=== PATIENT | female | born 1990 | race Caucasian/White ===

== ENCOUNTER 2025-03-21 13:49 | Outpatient (REF) | payer MEDICARE, MEDICAID, SELFPAY ==
[2025-03-21 16:21] LABS: Thyroid Stimulating Hormone 0.29 uIU/mL (0.32-4.0)
== END 2025-03-21 13:50 | disposition home or self-care (01) ==
LOC: HO.LAB 13:49
PROVIDERS: PCP Internal Medicine; Referring Provider Internal Medicine; Visit Provider Psychiatry & Neurology Neurology
DX: G93.49 Other encephalopathy (principal); F89 Unspecified disorder of psychological development; G80.9 Cerebral palsy, unspecified; G47.9 Sleep disorder, unspecified; Z79.899 Other long term (current) drug therapy
CPT/HCPCS: 36415; 84443; 99202

== ENCOUNTER 2025-03-21 13:49 | Outpatient (AMB) | payer MEDICARE, MEDICAID, SELFPAY ==
--- NOTE | 2025-03-21 14:03 | A.OFFVIS_ITS ---
Intake Visit Reasons: infantile cerebral palsy HPI Comments Details: The patient is a 34-year-old female presenting with the need for a comprehensive follow-up and evaluation, as she has not had consistent medical care for over 14 years. She has an established diagnosis of cerebral palsy and developmental delay of unknown etiology. Currently under the care of a non-relative caregiver, the patient exhibits type 2 diabetes mellitus, scoliosis, and congenital facial and skull allergies. She is nonverbal with limited communication abilities, and her sleep disturbances are managed with melatonin and a recently prescribed low- dose Trazodone. The patient does not exhibit seizure activity according to her caregiver since October, and she remains partially incontinent requiring diaper use for bowel and bladder control. Ongoing medical care includes future plans for an REHABILITATION CASE COORDINATOR visit, as a neurological evaluation has been primarily limited to PCP oversight. 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 - Musculoskeletal: Reports scoliosis. - Endocrine: Reports type 2 diabetes mellitus. - Respiratory: Reports congenital allergies affecting the skull and face. - Dermatological: No specific skin concerns reported. Physical Exam Neuro Other: Mental Status: She is alert and awake able to say Hi or yes or no but not communicating. She was busy working with the computer. She is smiling and giggling. Cranial Nerves: CN II: Visual braxton full to confrontation, visual acuity intact. CN III, IV, : Pupils equal, round, reactive to light and accommodation. Extraocular movements are normal. CN V: Facial sensation is normal. CN VII: Facial movements symmetrical. CN VIII: Hearing intact to bedside conversation is normal. CN IX, X: Palate elevates symmetrically. CN XI: Shoulder shrug and head turn symmetrical. CN XII: Tongue midline without atrophy or fasciculations. Motor: DTRs are brisk. Extrapyramidal: Full facial expressions and blinking. No rigidity. Movements are appropriate with no tremor or abnormality. Speech: Minimal./ Assessment & Plan Assessment & Plan (1) Chronic static encephalopathy: Code(s): G93.49 - Other encephalopathy Category: Medical (2) Developmental disability: Code(s): F89 - Unspecified disorder of psychological development Category: Medical Plan Impression: 34 yo woman with moderate to severe cognitive disability likely due to genetic or congenital etiology. No evidence or signs of headaches or seizures. She is known to be difficult to manage as far as behavior is concerned. She also has difficulty sleeping. Rec: a: CT brain w/o cont b: B12/folate, TSH Orders: Orders CT head/brain wo IV con Today F89 - Unspecified disorder of psychological development, G93.49 - Other encephalopathy Vitamin B12 and Folate Today F89 - Unspecified disorder of psychological development, G93.49 - Other encephalopathy Thyroid Stimulating Hormone Today F89 - Unspecified disorder of psychological development, G93.49 - Other encephalopathy Coding Level of Care Code Tele New Pt Level 4 (24404) Diagnoses Chronic static encephalopathy G93.49 Developmental disability F89
--- OUTSIDE RECORDS SUMMARY | 2025-03-21 14:45 | XMS_ITS | Clinical Summary ---
Author Organization [address] Address [address] [place] [phone] Phone Care Team Providers Care Commercial Parts Professional Name Role Phone Raul Zheng MD Primary Care Provider Allergies Active Allergy Reactions Criticality Noted Date Comments Other 01/06/2019 Seasonal--? Tree pollen Medications triamcinolone (KENALOG) 0.1 % lotion Apply topically 2 (two) times a day. 11/25/19 25 Active cetirizine (ZyrTEC) 10 mg tablet Take 1 tablet (10 mg total) by mouth 1 (one) time each day. 11/25/19 25 Active ammonium lactate (AMLACTIN) 12 % cream Apply topically if needed (thick skin). 770 g 01/26/20 25 025 Active traZODone (DESYREL) 50 mg tablet TAKE 0.5 TABLETS BY MOUTH AT BEDTIME NEEDED FOR SLEEP. 15 tablet 1 03/20/20 25 Active traZODone (DESYREL) 50 mg tablet Take 0.5 tablets (25 mg total) by mouth at bedtime as needed for sleep. 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 01/2025 Delay in development 09/08/2024 Infantile cerebral palsy (CMS/HCC V24, CMS/HCC V 28) 09/08/2024 Overview (09/08/2024): IMO update Otalgia 09/08/2024 Overview (09/08/2024): Seen by ENT for chronic eustachian tube dysfunction + otorrhea 2007 - 2009, seen 01/14/10 with cx taken and ciprodex started IMO update Renal sclerosis 09/08/2024 Idiopathic scoliosis and kyphoscoliosis 09/08/19 25 Class 2 obesity due to exces s calories without serious comorbidity with body mass index (BMI) of 38.0 to 38.9 in adult 09/08/2024 Cognitive impairment 11/06/2013 Encounters Date Type Department Care Team Description 02/21/2025 Telephone Internal Medicine - [address] [phone] Raul Zheng MD Pre-operative Clearance; info needed 02/16/2025 Telephone Internal Medicine - [address] [phone] Raul Zheng MD Insomnia 01/25/2025 3:30 PM EDT Consult Orthopedic Surgery [address] [phone] Oliver Spicer, DPM Contracture of muscle of both feet (Primary Dx); Bilateral bunions; Dermatophytosis of nail; Pain in toe of right foot; Pain in toe of left foot; Corns and callosities; Metatarsalgia of both feet; Difficulty walking [R26.2] 01/19/2025 10:00 AM EDT Consult Internal Medicine - [address] [phone] Raul Zheng MD Infantile cerebral palsy ([facility] V24, [facility] V28) (Primary Dx); Pre-operative clearance 12/26/2024 Telephone Internal Medicine - [address] [phone] Raul Zheng MD Forms/questionnaires from Last 3 Months Immunizations Name Administration Dates Next Due DTP 05/22/1993, 3,07/11/1992,05/16,02/12/1992 [id number] (Pentacel) 2mo to less than 5yo 02/20/1993,05/16/1992,02/27/1992,12/23 H1N1 Inj Preservative Free 06/12/2009 Hepatitis B Pediatric (Enger ix B; Recombivax HB) to less than 20 yo 10/16/1994,02/12/1992,1991 Influenza trivalent, with pr eservative (Fluzone; Afluria) 6mo and older 08/18/2010,04/22/2009,05/04/2005,05/12,05/15/2002,11/18/2000,07/16/2000 Influenza, live, intranasal, trivalent (FluMist) 2yo to less than 50yo 05/30/2014,06/12/2013,05/27/2012 MMR, measles mumps and rubel la Live (Priorix; M-M-R II) 12mo and older 11/13/1996,11/08/1992 Meningococcal MCV4P 06/12/2013,01/13/2008 OPV 11/13/1996, 3,07/11/1992,05/16,1991 Pneumococcal conjugate 20 va lent (Prevnar 20, PCV 20) 2mo and older 10/28/2023 Td Tetanus diptheria (Tdvax) 7yo and older 05/12/2004,11/13/1996 Tdap Tetanus diptheria acell ular pertussis (Boostrix; Adacel) 7yo and older 10/28/2023,11/17/2010 Varicella live (Varivax) 12m o and older 11/17/2010,11/18/2000 Surgical History Surgery Date Site/Laterality Comments OTHER SURGICAL HISTORY PROCEDURE: [place] RMVL LUNG OTHER THAN PNEUMONECTOMY 1 LOBE LOBECT; COMMENT: RIGHT LUNG CARDIAC SURGERY PROCEDURE: HISTORICAL HEART SURGERY(ASD,VSD,VALVES); COMMENT: patent ductus closure per father Medical History Medical History Date Comments Infantile cerebral palsy, unspecified DX:Infantile cerebral palsy, unspecified Renal sclerosis, unspecified DX: Renal sclerosis, unspecified Otalgia, unspecified DX:Otalgia, unspecified Unspecified delay in development(315.9) DX:Unspecified delay in development(315.9) Scoliosis (and kyphoscoliosi s), idiopathic DX:Scoliosis (and kyphoscoli osis), idiopathic Congenital anomalies of skul l and face bones DX:Congenital anomalies of s kull and face bones Family History Medical History Relation Name Comments Asthma Brother 1 Other cancer Mother Other: COPD Paternal Grandfather Relation Name Status Comments Brother 1 Brother 2 Alive Father Alive JESSICA Mother Paternal Grandfather Social History Tobacco Use Types Packs/Day Years Used Date Smoking Tobacco: Never Smokeless Tobacco: Never Alcohol Use Standard Drinks/Week Comments No 0 (1 standard drink = 0.6 oz pur e alcohol) Comments No Sex and Gender Information Value Date Recorded Sex Assigned at Not on file Legal Sex Female 7:32 AM EST Gender Identity Not on file Sexual Orientation Not on file Obstetrics History Last Filed Vital Signs Vital Sign Reading Time Taken Comments Blood Pressure 116/78 01/19/2025 9:31 AM EDT Pulse 80 01/19/2025 9:31 AM EDT Temperature 36.3 C (97.4 F) 01/19/2025 9:31 AM EDT Respiratory Rate - - Oxygen Saturation 96% 01/19/2025 9:31 AM EDT Inhaled Oxygen Concentration - - Weight 83.6 kg (184 lb 4.8 oz) 01/19/2025 9:31 A M EDT Height 160 cm (5' 3 ) 01/19/2025 9:31 AM EDT Body Mass Index 32.65 01/19/2025 9:31 AM EDT Plan of Treatment Health Maintenance Due Date Last Done Comments Cervical Cancer Screening: Pap Smear 10/18/2012 HIV Screening 07/05/2022 Hepatitis C Screening 07/05/2022 Medicare Annual Wellness Visit 07/05/2022 Social Influencers of Health Screening 07/05/2022 COVID-19 Vaccine ( season) 2024 08/14/2021, 12/17/2020, 11/26/2020 Depression Screening 08/02/2024 Influenza Vaccine (#1) 2025 4, 06/12/2013, 05/27/2012, Additional history exists Cholesterol Screening (Lipid Panel) 10/12/2029 10/12/2024, 01/06/2019 DTaP,Tdap,and Td Vaccines (9 - Td or Tdap) 10/27/2033 10/28/2023, 11/17/2010, 05/12/2004, Additional history exists HIB Vaccines Completed 02/20/1993, 05/02, 02/27/1992, Additional history exists Hepatitis B Vaccines Completed 10/16/1994, 02/12/1992, 1991 IPV Vaccines Completed 11/13/1996, 05/03, 02/20/1993, Additional history exists MMR Vaccines Completed 11/13/1996, 11/08/1992 Varicella Vaccines Completed 11/17/2010, 11/18/2000 Meningococcal ACWY Vaccine Completed 06/12/2013, Pneumococcal Vaccine: Pediatrics (0 to 5 Years) and At-Risk Patients (6 to 49 Years) Aged Out 10/28/2023 No longer eligible based on patient's age to complete this topic HPV Vaccines Aged Out No longer eligi ble based on patient's age to complete this topic Hepatitis A Vaccines Aged Out No long er eligible based on patient's age to complete this topic Meningococcal B Vaccine Aged Out No l onger eligible based on patient's age to complete this topic RSV Immunization Patients Under 20 months Aged Out No longer eligible based on patient's age to complete this topic Procedures Procedure Name Priority Date/Time Associated Diagnosis Comments XR FOOT 3+ VIEWS BILAT Routine 01/25/2025 4:02 PM EDT Bilateral bunions LIPID PANEL WITH REFLEX TO DIRECT LDL Routine 10/12/2024 4:17 PM EDT Screening for endocrine, nutritional, metabolic and immunity disorder from Last 3 Months or Most Recently Relevant to Health Maintenance Results * XR Foot 3+ Views bilat (01/25/2025 4:02 PM EDT) Anatomical Region Laterality Modality Lower Extremities, Foot Bilateral Computed Radiography Narrative 01/25/2025 4:53 PM EDT Right foot 3 views No fracture. No radiopaque foreign joint spaces normal Left foot 3 views No fracture. No radiopaque foreign joint spaces normal us Oliver Spicer DPSatish IMG XR PROCEDURES Final R esult * Lipid panel with reflex to direct LDL (10/12/2024 4:17 PM EDT) Cholesterol 166 0 - 200 mg/dL LAB CHEMISTRY METHOD 10/12/2024 7:17 PM EDT [facility] Triglycerides 135 0 - 150 mg/dL LAB CHEMISTRY METHOD 10/12/2024 7:17 PM EDT [facility] HDL 45 >=40 mg/dL LAB CHEMISTRY METHOD 10/12/2024 7:17 PM EDT [facility] LDL Calculated 94 0 - 100 mg/dL LAB CHEMISTRY METHOD 10/12/2024 7:17 PM EDT [facility] VLDL Cholesterol Vyes 27 mg/dL LAB CHEMISTRY METHOD 10/12/2024 7:17 PM EDT [facility] Non HDL Chol. (LDL+VLDL) 121 <145 mg/dL LAB CHEMISTRY METHOD 10/12/2024 7:17 PM EDT [facility] Chol/HDL Ratio 3.7 0.0 - 4.4 LAB CHEMISTRY METHOD 10/12/2024 7:17 PM EDT [facility] Blood Venous blood specimen / Unknown Venipuncture / Unknown 10/12/2024 4:17 PM EDT 10/12/2024 4:17 PM EDT Jez LINDSAY LAB BLOOD ORDERABLES Fi nal Result [facility] [address] [place] [address], from Last 3 Months or Most Recently Relevant to Health Maintenance Insurance MEDICAID - [place] MEDICARE Care Teams Commercial Parts Professional Relationship Specialty Start Date End Date Raul Zheng MD [address] [place] [id number] PCP - General Internal Medicine 08/09/20
--- OUTSIDE RECORDS SUMMARY | 2025-03-21 14:45 | XMS_ITS ---
Author Name Daykin MOUSTAPHA, Mr. Alejandro Harris Address [address] [place] [address] Phone [phone] [facility] Care Team Providers Care Barn Boss Name Role Phone Toan Santos Unavailable [phone] Reason for Referral Not Available Allergies, adverse reactions, alerts No known allergies Problem List Problem Status Onset Date Resolved Date Synopsis Morbid obesity Active 2022-12-30 N/A BMI- 35.51 Dad states that she doesn't get much exercise, has had spinal fusion, cannot move very well. Encouraged to try and make healthier dietary choices. Cerebral palsy Active 2022-12-30 N/A Lives with father, goes to day program M-F. Able to ambulate,. Scoliosis Active 2022-12-30 N/A Has had multip le spinal surgeries, dad says it makes her less independent, because she has a lot of metal rods in her back. Developmental delay Active 2022-12-30 N/A Fathomer gar reports that member is at 5-7 year old age level, mentally. Encounters Encounters Type Facility Date of Service Diagnosis/Co mplaint No Data Available [facility] ([place] 12/30/2022 Cerebral palsy, unspecifiedScoliosis, unspecifiedUnsp lack of expected normal physiol dev in childhoodMorbid (severe) obesity due to excess caloriesBody mass index (BMI) 35.0-35.9, adult No Data Available [facility] ([place]) 12/30/2022 No Data Available [facility] [place] 12/30/2022 No Data Available [facility] [place] 12/30/2022 No Data Available [facility] [place] 12/30/2022 No Data Available [facility] [place] 12/30/2022 No Data Available [facility] [place] 12/30/2022 Vital Signs Date of Collection Vitals 2022-12-30 06:06:50 Height - 167.64 cmWe ight - 99.79 kgBody Mass Index (BMI) - 35.51 kg/m2 Social History Social History Social History Observation Description Effec tive Time Current Smoking Status Never smoker 2025-03-03 0 Sex Female History of Procedures Procedures Service Procedure code Service date Servicing provider Phone# No Data Available [id number] 2022-12-30 No Data Available No Data Available Medication Review by prescribing provider or pharmacist documented (1160F) 1160F 2022-12-30 No Data Available No Data Hali ilable Functional Status Assessed (1170F) 1170F 2022-12-30 No Data Available No Data Avail able Pain Assessment - NO pain present (1126F) 1126F 2022-12-30 No Data Available No Data A vailable Advance Care Directive Advance care planning discussion documented in the medical record (1158F) 1158F 2022-12-30 No Data Available No Data Availa ble BMI obtained (3008F) 3008F 2022-12-30 No Data Availab le No Data Available Advance care planning discussed and documented advance care plan or surrogate decision-maker was documented in the medical record. (1123F) 1123F 2022-12-30 No Data Available No Data Availa ble Functional Status Functional Category Effective Dates Cognition Status: Oriented to Person, Pl connie and Time 2022-12-30 ADL Eating: Some Help Needed ; Ambulation: Some Help Needed- Wears bilateral AFO's; Dressing: Independent; Bathing: Total Assist; Toileting: Some Help Needed 2022-12-30 IADL Shopping: Some Help Nee ded; Housekeeping: Some Help Needed; Meal Prep: Some Help Needed; Medications Management: Total Assist 2022-12-30 Falls in last 6 Months: No 2022-12-30 Mental Status No Information Assessments Date of Service Assessments 2022-12-30 06:06:50 Cerebral palsyLives with father, goes to day program M-F. Able to ambulate,.ScoliosisHas had multiple spinal surgeries, dad says it makes her less independent, because she has a lot of metal rods in her back.Developmental delayFather reports that member is at 5-7 year old age level, mentally.Morbid obesityBMI- 35.51Dad states that she doesn't get much exercise, has had spinal fusion, cannot move very well. Encouraged to try and make healthier dietary choices. Plan of Care Date of Service Plans 2022-12-30 06:06:50 BMI obtained (3008F) Televideo new patient, 30-44min 1 stable chronic or 2 minor; add modifier 95Advance care planning discussed and documented advance care plan or surrogate decision-maker was documented in the medical record. (1123F)Continue to see PCP. Follow-up with Chriss as needed for any acute or disease education needs that may arise 22/02. Health Concerns Date Concern 2022-12-30 Visit completed via audio by telephone, will follow up for video. Patient/Guardian agreed to visit via telehealth. Introductory visit with Chriss to establish care. Today, patient has chief complaint of: establishing care.Spoke with keke, who is HCP/POA, total time 30 minutes.Reviewed Allergies, Medications, Active Medical conditions, past medical/surgical history, Social history. 2022-12-30 Most recent hospital stay(s) or ER visit(s) and precipitating factors: None Recently 2022-12-30 Advance care planwalter white discussion. Conversation today with: Member keke
== END 2025-03-21 14:18 | disposition home or self-care (01) ==
LOC: HO.HSM 13:50
PROVIDERS: PCP Internal Medicine; Referring Provider Internal Medicine; Visit Provider Psychiatry & Neurology Neurology
DX: G93.49 Other encephalopathy (principal); F89 Unspecified disorder of psychological development
CPT/HCPCS: 99204

== ENCOUNTER 2025-04-10 16:22 | Outpatient (REF) | payer MEDICARE, MEDICAID, SELFPAY ==
--- NOTE | ~2025-04-10 | CT_ITS ---
CLINICAL HISTORY: G93.49 - Other encephalopathy Exam: CT Head without IV contrast Comparison: None Findings: Moderate motion blurring despite repeated scan degraded diagnostic quality. No acute intracranial hemorrhage, mass, midline shift or hydrocephalus. Adamson-white matter differentiation is grossly maintained. Orbital contents are within normal range. Opacification of the left mastoid air cells and middle ear. Included paranasal sinuses are grossly unremarkable. No acute displaced fracture. Unremarkable extracranial soft tissue. Impression: 1. Suboptimal exam due to motion artifacts. No acute intracranial finding. 2. Opacification of the left mastoid air cells and middle ear, recommend clinical correlation for mastoiditis and otitis media. This document has been electronically signed by: Fransisca [place] MD on 04/11/2025 14:27:33
--- OUTSIDE RECORDS SUMMARY | 2025-04-10 18:12 | XMS_ITS | Clinical Summary ---
Author Organization [address] Address [address] [place] [phone] Phone Care Team Providers Care Liaison Planner Name Role Phone Raul Zheng MD Primary Care Provider [phone] Allergies Active Allergy Reactions Criticality Noted Date Comments Other 01/06/2019 Seasonal--? Tree pollen Medications triamcinolone (KENALOG) 0.1 % lotion Apply topically 2 (two) times a day. 11/25/19 25 Active cetirizine (ZyrTEC) 10 mg tablet Take 1 tablet (10 mg total) by mouth 1 (one) time each day. 11/25/19 25 Active traZODone (DESYREL) 50 mg tablet TAKE 0.5 TABLETS BY MOUTH AT BEDTIME NEEDED FOR SLEEP. 15 tablet 1 03/20/20 25 Active ammonium lactate (AMLACTIN) 12 % cream Apply topically if needed (thick skin). 770 g 01/26/20 25 025 traZODone (DESYREL) 50 mg tablet Take 0.5 [...] eustachian tube dysfunction + otorrhea 2007 - recurring 2009, seen 01/14/10 with cx taken and ciprodex started IMO update Renal sclerosis 09/08/2024 Idiopathic scoliosis and kyphoscoliosis 09/08/19 25 Class 2 obesity due to exces s calories without serious comorbidity with body mass index (BMI) of 38.0 to 38.9 in adult 09/08/2024 Cognitive impairment 11/06/2013 Encounters Date Type Department Care Team Description 04/05/2025 [facility] [address] [place] [address] Raul Zheng MD 03/27/2025 Telephone Internal Medicine - [address] [phone] Raul Zheng MD 03/22/2025 [facility] [address] [phone] Raul Zheng MD 02/21/2025 [facility] [address] [place] [address] Raul Zheng MD 02/16/2025 [facility] - [address] [phone] Raul Zheng MD 01/25/2025 3:30 PM EDT Consult Orthopedic Surgery - [address] [phone] Oliver Spicer, DPM Contracture of muscle of both feet (Primary Dx); Bilateral bunions; Dermatophytosis of nail; Pain in toe of right foot; Pain in toe of left foot; Corns and callosities; Metatarsalgia of both feet; Difficulty walking [R26.2] 01/19/2025 10:00 AM EDT Consult Internal Medicine - [address] [phone] Raul Zheng MD Infantile cerebral palsy (CMS/[facility] V24, CMS/[facility] V28) (Primary Dx); Pre-operative clearance from Last 3 Months Immunizations Name Administration Dates Next Due DTP 05/22/1993, 3,07/11/1992,05/16,02/12/1992 [id number] (Pentacel) 2mo to less than 5yo 02/20/1993,05/16/1992,02/27/1992,12/23 [...] Date Site/Laterality Comments OTHER SURGICAL HISTORY PROCEDURE: [place] RMVL LUNG OTHER THAN PNEUMONECTOMY 1 LOBE [...] 07/05/2022 Social Influencers of Health Screening 07/05/2022 Depression Screening 08/02/2024 COVID-19 Vaccine ( season) 2025 08/14/2021, 12/17/2020, 11/26/2020 Influenza Vaccine (#1) 2025 4, 06/12/2013, 05/27/2012, [...] foreign joint spaces normal us Oliver Spicer DPM IMG XR PROCEDURES Final R esult * Lipid panel with reflex to direct LDL (10/12/2024 4:17 PM EDT) Cholesterol 166 0 - 200 mg/dL LAB CHEMISTRY METHOD 10/12/2024 7:17 PM EDT [facility] Triglycerides 135 0 - 150 mg/dL LAB CHEMISTRY METHOD 10/12/2024 7:17 PM EDT [facility] HDL 45 >=40 mg/dL LAB CHEMISTRY METHOD 10/12/2024 7:17 PM EDT [facility] LDL Calculated 94 0 - 100 mg/dL LAB CHEMISTRY METHOD 10/12/2024 7:17 PM EDT [facility] VLDL Cholesterol Yves 27 mg/dL LAB CHEMISTRY METHOD 10/12/2024 7:17 PM EDT [facility] Non HDL Chol. (LDL+VLDL) 121 <145 mg/dL LAB CHEMISTRY METHOD 10/12/2024 7:17 PM EDT [facility] Chol/HDL Ratio 3.7 0.0 - 4.4 LAB CHEMISTRY METHOD 10/12/2024 7:17 PM EDT [facility] Blood Venous blood specimen / Unknown Venipuncture / Unknown 10/12/2024 4:17 PM EDT 10/12/2024 4:17 PM EDT us Jez LINDSAY LAB BLOOD ORDERABLES Fi nal Result [facility] [address] [place] [address], [place] [phone] from Last 3 Months or Most Recently Relevant to Health Maintenance Insurance [place] Care Teams Liaison Planner Relationship Specialty Start Date End Date Raul Zheng MD [address] [place] [id number] PCP - General Internal Medicine 08/09/20
--- OUTSIDE RECORDS SUMMARY | 2025-04-10 18:12 | XMS_ITS ---
Author Name Ivydale MOUSTAPHA, Mr. Alejandro Harris Address [address] [place] [address] Phone [phone] [facility] Care Team Providers Care Orthodontist Assistant Name Role Phone Toan Santos Unavailable [phone] Reason for Referral Not Available Allergies, adverse [...] of Service Diagnosis/Co mplaint No Data Available [facility] ([place] 12/30/2022 Cerebral palsy, unspecifiedScoliosis, unspecifiedUnsp lack of expected normal physiol dev in childhoodMorbid (severe) obesity due to excess caloriesBody mass index (BMI) 35.0-35.9, adult No Data Available [facility] [place] 12/30/2022 No Data Available [facility] [place] 12/30/2022 No Data Available [facility] [place] 12/30/2022 No Data Available [facility] [place] 12/30/2022 No Data Available [facility] [place] 12/30/2022 No Data Available [facility] [place] 12/30/2022 Vital Signs Date of Collection Vitals 2022-12-30 06:06:50 Height - 167.64 cmWe ight - 99.79 kgBody Mass Index (BMI) - 35.51 kg/m2 Social History Social History Social History Observation Description Effec tive Time Current Smoking Status Never smoker 10 Sex Female History of Procedures Procedures Service Procedure code Service date Servicing provider Phone# No Data Available [id number] 2022-12-30 No Data Available No Data Available [...]
--- OUTSIDE RECORDS SUMMARY | 2025-04-10 18:13 | XMS_ITS | Encounter Summary ---
Author Organization [facility] Address [address] [place] [address] Care Team Providers Care Customer Service Assistant Name Role Phone Raul Zheng MD Primary Care Provider [phone] Reason for Visit * Reason Onset Date Comments information needed 04/05/2025 Encounter Details Date Type Department Care Team (Late st Contact Info) Description 04/05/2025 Telephone Internal Medicine [facility] [address] [place] [address] Raul Zheng MD [address] [place] [address] Social History Tobacco Use Types Packs/Day Years Used Date Smoking Tobacco: Never Smokeless Tobacco: Never Alcohol Use Standard Drinks/Week Comments No 0 (1 standard drink = 0.6 oz pur e alcohol) Comments No Sex and Gender Information Value Date Recorded Sex Assigned at Not on file Legal Sex Female 7:32 AM EST Gender Identity Not on file Sexual Orientation Not on file documented as of this encounter Progress Notes * Colette Tello MA - 04/05/2025 2:33 PM EDT Faxed * Telma Tena - 04/05/2025 2:28 PM EDT [facility] , Pari Pope - director [facility] asked for copy of last PE 10/30/24 faxed to [phone] documented in this encounter Plan of Treatment Not on file documented as of this encounter Visit Diagnoses Not on filedocumented in this encounter Care Teams Customer Service Assistant Relationship Specialty Start Date End Date Raul Zheng MD [address] [place] [address] PCP - General Internal Medicine 08/09/20 documented as of this encounter
--- OUTSIDE RECORDS SUMMARY | 2025-04-10 18:13 | XMS_ITS | Patient Health Record ---
Author Organization [facility] Address [address] [place] [id number] Care Team Providers Care Chef French Name Role Phone OMID LPOEZ Unavailable [phone] Allergies No Known Allergies Results Component Value Reference Range Flag Notes NuSwab VG+, Anabel 6sp-1800 68 Reviewed date:04/01/2025 08:26:38 AM Interpretation:BV/VVC Performing Lab:[facility] [place], [address] [place] [address], [place], Phone - [phone], Director - [place] Notes/Report: and Drug Administration. by [employer]. It has not been cleared or approved by the Food was developed and its performance characteristics determined 121350-Tanmoix krusei, LETICIA 454340-U parapsilosis/tropicalis; 098972-Mtpehpp lusitaniae, LETICIA; Test(s) 159983-Xtixyzr albicans, LETICIA; 324611-Ddnlity glabrata, LETICIA; and Drug Administration. by [employer]. It has not been cleared or approved by the Xero was Savorfull and its performance characteristics determined Megasphaera 1 Clinical Information:SRC: SOURCE NOT INDICATED Atopobium vaginae High - 2 A BVAB 2 Moderate - 1 Megasphaera 1 Low - 0 Calculate total score by adding the 3 individual bacterial vaginosis (BV) marker scores together. Total score is interpreted as follows: Total score 0-1: Indicates the absence of BV. Total score 2: Indeterminate for BV. Additional clinical data should be evaluated to establish a diagnosis. Total score 3-6: Indicates the presence of BV. Anabel albicans, LETICIA Positive Negative A Anabel glabrata, LETICIA Negative Negative C parapsilosis/tropicalis Negative Negative This assay does not differentiate C. tropicalis and C. parapsilosis. Anabel lusitaniae, LETICIA Negative Negative Anabel krusei, LETICIA Negative Negative Trich vag by LETICIA Negative Negative Chlamydia trachomatis, LETICIA Negative Negative Neisseria gonorrhoeae, LETICIA Negative Negative Reason For Referral Reason TANK TRUCK DRIVER referral Diagnosis 1 Menorrhagia (N92.0) Referral Organization [facility] Referring Provider First Name OMID Referring Provider Last Name JOHN Referring Provider Speciality Nurse Chema alexis Referred Provider Specialty Duralumin Mechanic General Notes Camila Kaur) is a 34 year old AFAB person with a history of autism spectrum disorder, cerebral palsy, and a specific learning disorder. She was accompanied to today's visit by her personal fitness trainer to address concerns regarding menorrhagia and dysmenorrhea., Given the severity of symptoms, menstrual suppression was initiated with combined hormonal contraceptives as a first-line intervention. However, due to ongoing challenges with symptom management and long-term planning, gynecology evaluation is requested to consider alternative options, including levonorgestrel-releasing intrauterine device (IUD) placement under sedation or surgical management if indicated., The patient has never undergone cervical cancer screening or STI screen. Due to limited verbal communication and cognitive impairment, a standard speculum exam would likely cause significant distress and may not be tolerated without sedation. Sedation is recommended for both pelvic examination and any procedures to ensure patient comfort and support a trauma-informed approach. Sexual history is unknown and cannot be reliably obtained. Please schedule consult accordingly. Thank you, OMID LOPEZ 03/27/2025 05:28:48 PM > Clinical Notes Emily Ruggiero 2024 12:54:04 PM > printed and sent Referral Priority Routine Medications Medication SIG (Take, Route, Frequency, Duration) Notes Start Date End Date Status metroNIDAZOLE 500 MG Tablet 1 tablet Ora lly Twice a day, every 12 hours; Duration: 7 days 03/30/2025 Active Fluconazole 150 MG Tablet 1 tablet Orall y One tablet every 72 hours for a total of 3 doses; Duration: 9 day(s) 03/30/2025 Active CeleBREX Active Desogestrel-Ethinyl Estradiol 0.15-0.02/0.01 MG (20/12) Tablet 1 tablet Orally Once a day; Duration: 84 days Active Social History Sex Assigned At : Social History Observation Description Sex Assigned At Female Social History HIV Risk Assessment Social Info Question Answer Notes Additional Questions Is an HIV Risk Assessment being c onducted? Yes Have you been tested for HIV before? No Did you have a blood transfusion prior to 1985? No Do you have an unlicensed body piercing or tattoo? No Reproductive Life Plan: Social Info Question Answer Notes Reproductive Life Plan: Do you want to h ave children? No, I don't want to have children How sure are you that you will be able to use your control method without any problems? Very sure People's plans change. Is it possible you or your partner could ever decide to become ? Yes Human Trafficking: Social Info Question Answer Notes Human Trafficking Experienced: No Sexual History: Social Info Question Answer Notes Sexual History: Sexual History Reviewed: Partner s, Practices, Protection/Past STIs, Prevention of Currently sexually active? No Your sexual activities include: no sexual activity Completed Gardasil vaccination series? No Counseling Provided: Social Info Question Answer Notes Counseling Provided Please indicate the length of time, in minutes, that counseling was provided. 9 Counseling Was Provided By: marty Drugs/Alcohol: Social Info Question Answer Notes Drug/Alcohol Use Do you or have you used drugs? No Do you or have you used alcohol? No Food Access: Social Info Question Answer Notes Food Access The Client's current access to food is Secure Food Access Relationships: Social Info Question Answer Notes Relationships Has the client exper ienced any of the following: Client has never experienced harmful relationships Housing Social Info Question Answer Notes Housing The client's current living situation is: stable housing Tobacco Use: Social Info Question Answer Notes Tobacco Use: Do you/have you used tobacco? No Tobacco Smoking Status Never smoker Problems Problem Type SNOMED Code ICD Code Onset Dates Problem Status W/U Status Risk Notes Problem Menorrhagia (033543135) Menorrhagia (N92.0) Active confirmed Vital Signs Blood pressure diastolic 78 mm Hg 03/27/2025 Height 5'4 in 03/27/2025 Blood pressure systolic 120 mm Hg 03/27/2025 Weight 192 lbs 03/27/2025 BMI 32.95 kg/m2 03/27/2025 Encounters Encounter Location Date Provider Diagnosis [facility] [address] [facility] [address] [place], [place] [id number] 03/27/2025 OMIDANNIE LOPEZ Encounter for screening for other infectious and parasitic diseases Z11.8 ; Encounter for initial prescription of contraceptive pills Z30.011 ; Menorrhagia N92.0 and Counseling, unspecified Z71.9 [facility] [address] [place] [address] [address] [place], [place] [phone] 03/28/2025 OMID LOPEZ Assessments Encounter Date Diagnosis (ICD Code) Assessment Notes Treatment Notes Treatment Clinical Notes Section Notes 03/27/2025 Encounter for screening for other infectious and parasitic diseases (ICD-10 - Z11.8) Referral to TANK TRUCK DRIVER for consult. Can discuss if PAP warranted under sedation for clt comfort. Will start on ELVIRA at this time for menstrual suppression to manage heavy/painful menses. Can discuss surgical options with TANK TRUCK DRIVER (e.g., hysterectomy) for long-term management, if clinically appropriate. A genital swab was obtained with the assistance of both the client and her LOOP TENDER. A speculum was not utilized during the collection in order to minimize discomfort. The client tolerated the procedure without apparent distress. However, given her limited understanding of the exam process, she would likely benefit from a more comprehensive evaluation with additional support measures in place to ensure comfort, minimize potential distress, and facilitate a more thorough assessment if needed. Spent ___ minutes doing the following: Chart Prep Obtaining/revie wing history Performing medically necessary exam Counseling/Coor dination of Care Documenting the visit Educating the patient Ordering medication/test /procedures Communication of test results New Patient: [id number] 45 Minutes 03/27/2025 Encounter for initial prescription of contraceptive pills (ICD-10 - Z30.011) No contraindications to CHC, quick start with BUM x 7 days. Aware of ACHES. Advised on missed and/or late pills. Reviewed how to take method for menstrual suppression if desires. Follow up in 3 months for pill check. Rx sent to pharmacy for extended cycle regimen Spent ___ minutes doing the following: Chart Prep Obtaining/revie wing history Performing medically necessary exam Counseling/Coor dination of Care Documenting the visit Educating the patient Ordering medication/test /procedures Communication of test results New Patient: [id number] 45 Minutes 03/27/2025 Menorrhagia (ICD-10 - N92.0) Follow up if no improvement in heavy/painful menses with ELVIRA use Spent ___ minutes doing the following: Chart Prep Obtaining/revie wing history Performing medically necessary exam Counseling/Coor dination of Care Documenting the visit Educating the patient Ordering medication/test /procedures Communication of test results New Patient: [id number] 45 Minutes 03/27/2025 Counseling, unspecified (ICD-10 - Z71.9) Continue to support guardian with education around behavioral strategies for managing public masturbation, including options for private self-stimulation. R/o infection with Nuswab today Spent ___ minutes doing the following: Chart Prep Obtaining/revie wing history Performing medically necessary exam Counseling/Coor dination of Care Documenting the visit Educating the patient Ordering medication/test /procedures Communication of test results New Patient: [id number] 45 Minutes Plan Of Treatment No Information Insurance Providers Payer Name Payer Address Payer Phone Subscriber Number Group Number Insured Name Patient Relationship to Insured Coverage Start Date Coverage End Date MEDICARE PART B [address] ANJU ROBERTJOSE RAUL [id number] Camila Mcguire Self - patient is the insured [place] CLAIMS [address] [place] [address] [id number] Camila Mcguire Self - patient is the insured Medical (General) History Medical History History ICD Code cerebral palsy autism Mental health concerns BV/VVC Surgical History Surgery Date(Month/Year) clebrex Hospitalization History Reason Date(Month/Year) see surg hx
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
== END 2025-04-10 16:23 | disposition home or self-care (01) ==
LOC: HO.CT 16:22
PROVIDERS: PCP Internal Medicine; Visit Provider Psychiatry & Neurology Neurology
DX: G93.49 Other encephalopathy (principal); F89 Unspecified disorder of psychological development
CPT/HCPCS: 70450

== ENCOUNTER → 2025-04-10 16:24 | Outpatient (BNV) | payer MEDICARE, MEDICAID, SELFPAY | PROVIDERS: PCP Internal Medicine; Visit Provider Radiology Diagnostic Radiology | DX: G93.49 Other encephalopathy (principal); H74.8X2 Other specified disorders of left middle ear and mastoid | CPT/HCPCS: 70450 ==

== ENCOUNTER 2025-04-25 14:13 | Outpatient (AMB) | payer MEDICARE, MEDICAID, SELFPAY ==
--- NOTE | 2025-04-25 14:19 | MHC.OFFVIS ---
Intake Visit Reasons: after CT Allergies No Known Allergies Allergy (Verified 04/23/25 10:59) HPI Comments Details: 34 yo woman with moderate to severe cognitive disability likely due to genetic or congenital etiology. She is presenting with concerns regarding her daughter's congenital brain malformation identified with a CAT scan, which indicated -related complications. The daughter displays developmental delays, with cognitive function estimated at a grade-school level, manifested since . The patient sought further evaluation for her daughter's developmental status, acknowledging limitations as cognitive tests commonly applied to children are not performed on adults. No heightened medical intervention was indicated, and previous blood tests were normal. 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 Assessment & Plan Assessment & Plan (1) Chronic static encephalopathy: Comment: CT brain WO at [facility] Apr 2025: Limited exam. 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 CT brain revealed significant cortical atrophy that suggested a chronic process. Rec: Education of family Conservative measures PRN f/u We reviewed the CT brain findings. The limitation of cognitive testing for adults was elucidated, emphasizing the absence of standard adult assessments for developmental delay. We discussed the stability of the daughter's condition, and no new medication or urgent intervention is needed at this time. The patient's understanding was confirmed with directions to continue monitoring her daughter's condition and return for follow-up as necessary if any further concerns arise. Coding Level of Care Code Est Pt Level 4 (92031) Diagnoses Chronic static encephalopathy G93.49 Developmental disability F89
--- OUTSIDE RECORDS SUMMARY | 2025-04-25 17:00 | XMS_ITS | Clinical Summary ---
Author Organization [address] Address [address] [place] [address] Phone Care Team Providers Care Attic Fans Mechanic Name Role Phone Raul Zheng MD Primary Care Provider [phone] Allergies Active Allergy Reactions Criticality Noted Date Comments Other 01/06/2019 Seasonal--? Tree pollen Medications triamcinolone (KENALOG) 0.1 % lotion Apply topically 2 (two) times a day. 5 Active cetirizine (ZyrTEC) 10 mg tablet Take 1 tablet (10 mg total) by mouth 1 (one) time each day. 5 Active traZODone (DESYREL) 50 mg tablet TAKE 0.5 TABLETS BY MOUTH AT BEDTIME NEEDED FOR SLEEP. 15 tablet 1 5 Active ammonium lactate (AMLACTIN) 12 % cream Apply topically if needed (thick skin). 770 g 5 03/26/20 25 Active Problems Problem Noted Date Diagnosed Date [...] Encounters Date Type Department Care Team Description 04/23/2025 Telephone Internal Medicine - [facility] [address] [place] [address] Raul Zheng MD 04/16/2025 Telephone [facility] [address] [facility] [place] [place] [phone] Raul Zheng MD 04/05/2025 [facility] [place] [address] [place], [place] [address], [place] [phone] Raul Zheng MD 03/27/2025 [facility] [place] [address] [place], [place] [address] [place], [place] [phone] Raul Zheng MD 03/22/2025 [facility] [place] [address] [facility] [place] [place] [phone] Raul Zheng MD 02/21/2025 [facility] [place] [address] [place], [place] [address] [place], [place] [phone] Raul Zheng MD 02/16/2025 [facility] [place] [address] [place] [address] Raul Zheng MD 01/25/2025 3:30 PM EDT Consult Orthopedic Surgery - [place] [address] [facility] [address] [place] [phone] Oliver Spicer, DPM Contracture of muscle of both feet (Primary Dx); Bilateral bunions; Dermatophytosis of nail; Pain in toe of right foot; Pain in toe of left foot; Corns and callosities; Metatarsalgia of both feet; Difficulty walking [R26.2] from Last 3 Months Immunizations Name Administration Dates Next Due DTP 05/22/1993, 3,07/11/1992,05/16,02/12/1992 [id number] (Pentacel) 2mo to less than 5yo 02/20/1993,05/16/1992,02/27/1992,12/23 [...] Date Site/Laterality Comments OTHER SURGICAL HISTORY PROCEDURE: [place] RMVL LUNG OTHER THAN PNEUMONECTOMY 1 LOBE [...] 10/27/2033 10/28/2023, 11/17/2010, 05/12/2004, Additional history exists RSV Immunization Adult Patients (1 - 1-dose 75+ series) 10/18/2066 HIB Vaccines Completed 02/20/1993, 05/02, 02/27/1992, Additional [...] Procedure Name Priority Date/Time Associated Diagnosis Comments EXTERNAL CT REPORT 04/11/2025 XR FOOT 3+ VIEWS BILAT Routine 01/25/2025 4:02 PM EDT Bilateral bunions LIPID PANEL WITH REFLEX TO DIRECT LDL Routine 10/12/2024 4:17 PM EDT Screening for endocrine, nutritional, metabolic and immunity disorder from Last 3 Months or Most Recently Relevant to Health Maintenance Results * External CT Report (04/11/2025) Anatomical Region Laterality Modality Computed Tomogra phy us Provider [facility]G CT PROCEDURES Final Result * XR Foot 3+ Views bilat (01/25/2025 4:02 PM EDT) Anatomical Region Laterality Modality Lower Extremities, Foot Bilateral Computed Radiography Narrative 01/25/2025 4:53 PM EDT Right foot 3 views No fracture. No radiopaque foreign joint spaces normal Left foot 3 views No fracture. No radiopaque foreign joint spaces normal Oliver Spicer DPM IMG XR PROCEDURES Final R esult * Lipid panel with reflex to direct LDL (10/12/2024 4:17 PM EDT) Cholesterol 166 0 - 200 mg/dL LAB CHEMISTRY METHOD 10/12/2024 7:17 PM EDT [facility] Triglycerides 135 0 - 150 mg/dL LAB CHEMISTRY METHOD 10/12/2024 7:17 PM EDT [facility] HDL 45 >=40 mg/dL LAB CHEMISTRY METHOD 10/12/2024 7:17 PM EDT [facility] LDL Calculated 94 0 - 100 mg/dL LAB CHEMISTRY METHOD 10/12/2024 7:17 PM EDT [facility] VLDL Cholesterol Yves 27 mg/dL LAB CHEMISTRY METHOD 10/12/2024 7:17 PM EDT [facility] Non HDL Chol. (LDL+VLDL) 121 <145 mg/dL LAB CHEMISTRY METHOD 10/12/2024 7:17 PM EDT [facility] Chol/HDL Ratio 3.7 0.0 - 4.4 LAB CHEMISTRY METHOD 10/12/2024 7:17 PM EDT [facility] Blood Venous blood specimen / Unknown Venipuncture / Unknown 10/12/2024 4:17 PM EDT 10/12/2024 4:17 PM EDT Jez LINDSAY LAB BLOOD ORDERABLES Fi nal Result [facility] [address] [place] [address], [place] [phone] from Last 3 Months or Most Recently Relevant to Health Maintenance Insurance MEDICA[place] - [place] MEDICARE Care Teams Attic Fans Mechanic Relationship Specialty Start Date End Date Raul Zheng MD [address] [place] [id number] PCP - General Internal Medicine 08/09/20
--- OUTSIDE RECORDS SUMMARY | 2025-04-25 17:00 | XMS_ITS | Patient Health Record ---
Author Organization [facility] Address [address] [place] [phone] Care Team Providers Care Oracle Bpm Developer Name Role Phone OMID LOPEZ Unavailable [phone] Allergies No Known Allergies Results Component Value Reference Range Flag Notes NuSwab VG+, Anabel 6sp-1800 68 Reviewed date:04/01/2025 08:26:38 AM Interpretation:BV/VVC Performing Lab:[facility], [address] [place] [address], [place], Phone - [phone], Director - [place] Notes/Report: and Drug Administration. by [employer]. It has not been cleared or approved by the Food was developed and its performance characteristics determined 776108-Aizjtcu krusei, LETICIA 928620-X parapsilosis/tropicalis; 253527-Jdgjlfa lusitaniae, LETICIA; Test(s) 392757-Hsjjpok albicans, LETICIA; 116212-Pavhyko glabrata, LETICIA; and Drug Administration. by [employer]. It has not been cleared or approved by the [employer] was PrePay and its performance characteristics determined Megasphaera 1 [...] LETICIA Negative Negative Reason For Referral Reason TOBACCO PRIZER referral Diagnosis 1 Menorrhagia (N92.0) Referral Organization [facility] Referring Provider First Name OMID Referring Provider Last Name JOHN Referring Provider Speciality Nurse Chema alexis Referred Provider Specialty It Data Architect General Notes Camila Kaur) is a 34 year old AFAB person with a history of autism spectrum disorder, cerebral palsy, and a specific learning disorder. She was accompanied to today's visit by her personal health coach to address concerns regarding menorrhagia and dysmenorrhea., [...] Status W/U Status Risk Notes Problem Menorrhagia (962599001) Menorrhagia (N92.0) Active confirmed Vital Signs Blood pressure diastolic 78 mm Hg 03/27/2025 Height 5'4 in 03/27/2025 Blood pressure systolic 120 mm Hg 03/27/2025 Weight 192 lbs 03/27/2025 BMI 32.95 kg/m2 03/27/2025 Encounters Encounter Location Date Provider Diagnosis [facility] [address] [facility] [address] [place], [place] [id number] 03/27/2025 OMIDANNIE LOPEZ Encounter for screening for other infectious and parasitic diseases Z11.8 ; Encounter for initial prescription of contraceptive pills Z30.011 ; Menorrhagia N92.0 and Counseling, unspecified Z71.9 [facility] [address] [place] [address] [address] [place], [place] [id number] 03/28/2025 OMID LOPEZ Assessments Encounter Date Diagnosis (ICD Code) Assessment Notes Treatment Notes Treatment Clinical Notes Section Notes 03/27/2025 Encounter for screening for other infectious and parasitic diseases (ICD-10 - Z11.8) Referral to TOBACCO PRIZER for consult. Can discuss if PAP warranted under sedation for clt comfort. Will start on ELVIRA at this time for menstrual suppression to manage heavy/painful menses. Can discuss surgical options with TOBACCO PRIZER (e.g., hysterectomy) for long-term management, if clinically appropriate. A genital swab was obtained with the assistance of both the client and her CABINET AND TRIM INSTALLER. A speculum was not utilized during the [...] /procedures Communication of test results New Patient: [id number] Minutes 03/27/2025 Encounter for initial prescription [...] /procedures Communication of test results New Patient: [id number] Minutes 03/27/2025 Menorrhagia (ICD-10 - N92.0) Follow up if no improvement in heavy/painful menses with ELVIRA use Spent ___ minutes doing the following: Chart Prep Obtaining/revie wing history Performing medically necessary exam Counseling/Coor dination of Care Documenting the visit Educating the patient Ordering medication/test /procedures Communication of test results New Patient: [id number] 45 Minutes 03/27/2025 Counseling, unspecified (ICD-10 - [...] /procedures Communication of test results New Patient: [id number] 45 Minutes Plan Of Treatment No Information Insurance Providers Payer Name Payer Address Payer Phone Subscriber Number Group Number Insured Name Patient Relationship to Insured Coverage Start Date Coverage End Date MEDICARE PART B [address] ANJU ROBERTJOSE RAUL [phone] [id number] Camila Mcguire Self - patient is the insured [place] ATT CLAIMS [address] [place] [address] [id number] Camila Mcguire Self - patient is the insured Medical (General) History Medical History History ICD Code cerebral palsy autism Mental health concerns BV/VVC Surgical History Surgery Date(Month/Year) clebrex Hospitalization History Reason Date(Month/Year) see surg hx
--- OUTSIDE RECORDS SUMMARY | 2025-04-25 17:00 | XMS_ITS ---
Author Name Peosta MOUSTAPHA, Mr. Alejandro Harris Address [address] [place] [address] Phone [phone] [facility] Care Team Providers Care Licensed Mental Health Counselor Name Role Phone Toan Santos Unavailable [phone] Reason for Referral Not Available Allergies, adverse [...] of Service Diagnosis/Co mplaint No Data Available [facility], ([place] 12/30/2022 Cerebral palsy, unspecifiedScoliosis, unspecifiedUnsp lack of expected normal physiol dev in childhoodMorbid (severe) obesity due to excess caloriesBody mass index (BMI) 35.0-35.9, adult No Data Available [facility] ([place] 12/30/2022 No Data Available [facility] [place] 12/30/2022 No Data Available [facility] [place] 12/30/2022 No Data Available [facility] [place] 12/30/2022 No Data Available [facility] [place] 12/30/2022 No Data Available [facility], [place] 12/30/2022 Vital Signs Date of Collection Vitals 2022-12-30 06:06:50 Height - 167.64 cmWe ight - 99.79 kgBody Mass Index (BMI) - 35.51 kg/m2 Social History Social History Social History Observation Description Effec tive Time Current Smoking Status Never smoker 2025-04-03 4 Sex Female History of Procedures Procedures Service Procedure code Service date Servicing provider Phone# No Data Available [id number] 2022-12-30 No Data Available No Data Available [...]
--- OUTSIDE RECORDS SUMMARY | 2025-04-25 17:00 | XMS_ITS | Encounter Summary ---
Author Organization [facility] Address [address] [place] [phone] Care Team Providers Care Milieu Therapist Name Role Phone Raul Zheng MD Primary Care Provider [phone] Reason for Visit * Reason Onset Date Comments information needed/spinal surgery 04/16/2025 Encounter Details Date Type Department Care Team (Late st Contact Info) Description 04/16/2025 [facility] [address] [place] [phone] Raul Zheng MD [address] [place] [phone] Social History Tobacco Use Types Packs/Day Years [...] Progress Notes * Colette Tello MA - 04/18/2025 4:04 PM EDT No MICHAEL received. * Colette Tello MA - 04/17/2025 8:25 AM EDT Awaiting MICHAEL * Michelle Mccann - 04/16/2025 1:45 PM EDT I informed pt that michael needs to be signed first. 04/16/25 kg * Colette Tello MA - 04/16/2025 1:22 PM EDT Need signed MICHAEL * Michelle Mccann - 04/16/2025 1:03 PM EDT [facility] is calling to request information about a spinal surgery the pt. Had. She stated that she couldn't remember details. They are looking for the specific type of surgery, pt thought it was a spinal fusion, where the surgery was preformed and the year it was done. Please advise fax number is [phone] documented in this encounter Plan of Treatment Not on file documented as of this encounter Visit Diagnoses Not on filedocumented in this encounter Care Teams Milieu Therapist Relationship Specialty Start Date End Date Raul Zheng MD [address] [place] [phone] PCP - General Internal Medicine 08/09/20 documented as of this encounter
--- OUTSIDE RECORDS SUMMARY | 2025-04-25 17:00 | XMS_ITS | Encounter Summary ---
Author Organization [facility] Address [address] [place] [phone] Care Team Providers Care Supervisor [employer] Production Name Role Phone Raul Zheng MD Primary Care Provider [phone] Reason for Visit * Reason Onset Date Comments Faxed Order 04/23/2025 [facility] Encounter Details Date Type Department Care Team ([facility] st Contact Info) Description 04/23/2025 Telephone Internal Medicine - [address] [phone] Raul Zheng MD [address] [place] [phone] Social History Tobacco Use Types Packs/Day Years [...] as of this encounter Progress Notes * Maricel Snow MA - 04/24/2025 10:50 AM EDT Signed and mailed in envelope provided. Copy made and placed in file cabinet. * Maria Del Rosario Juarez - 04/23/2025 1:24 PM EDT Orders mailed from [facility] placed in Raul Zheng MD bin. Please complete and send back. Irmayou. documented in this encounter Plan of Treatment Not on file documented as of this encounter Visit Diagnoses Not on filedocumented in this encounter Care Teams Supervisor [employer] And [employer] Production Relationship Specialty Start Date End Date Raul Zheng MD [address] [place] [phone] PCP - General Internal Medicine 08/09/20 documented as of this encounter
== END 2025-04-25 15:00 | disposition home or self-care (01) ==
LOC: HO.HSM 14:14
PROVIDERS: PCP Internal Medicine; Visit Provider Psychiatry & Neurology Neurology
DX: G93.49 Other encephalopathy (principal); F89 Unspecified disorder of psychological development
CPT/HCPCS: 99214

== ENCOUNTER → 2025-04-25 14:13 | Outpatient (BNVA) | payer MEDICARE, MEDICAID, SELFPAY | PROVIDERS: PCP Internal Medicine; Visit Provider Psychiatry & Neurology Neurology | DX: G93.49 Other encephalopathy (principal); F89 Unspecified disorder of psychological development | CPT/HCPCS: 99212 ==